=== PATIENT | female | born 1965 ===

== ENCOUNTER 2022-10-28 04:36 | Outpatient (CLI) | payer BC, SELFPAY ==
[2022-10-28 14:12] LABS: ALT 22 U/L (14-59); AST 19 U/L (15-37); Albumin 3.8 g/dL (3.4-5.0); Alkaline Phosphatase 87 U/L (46-116); Bilirubin, Direct 0.1 mg/dL (0.0-0.2); Bilirubin, Total 0.4 mg/dL (0.2-1.0); Total Protein 6.8 g/dL (6.4-8.2)
== END 2022-10-28 04:37 | disposition home or self-care (01) ==
DX: Z79.899 Other long term (current) drug therapy (principal); Z51.81 Encounter for therapeutic drug level monitoring
CPT/HCPCS: 36415; 80076